=== PATIENT | female | born 1950 | race Caucasian/White ===

== ENCOUNTER 2019-05-13 10:47 | Emergency (ER) | payer OTHER, SELFPAY ==
[2019-05-13 11:02] VITALS: BP 138/78; PULSE 97; RESP 16; TEMP 36.6; O2SAT 97
--- NOTE | 2019-05-13 11:31 | W.ED.GENAD ---
Discharge Plan Disposition Patient Disposition: [facility] [place] Discharge Details Chief Complaint: Suicide-Atempt Clinical Impression: Depression, Suicidal ideation Primary Care Provider: Nani Gonzalez ED Provider: Surendra Mcgill Home Meds and New Rx's Prescriptions: No Action multivitamin tablet 1 tab PO DAILY RF: 0 magnesium oxide 420 mg tablet 420 mg PO DAILY RF: 0 spironolactone 100 mg tablet 50 mg PO BID RF: 0 estradiol 0.1 mg/24 hr patch semiweekly 1 patch TD ONCE RF: 0 hydroxyzine HCl 50 mg tablet 50 mg PO BID PRNRF: 0 fluoxetine 20 mg capsule 20 mg PO DAILY RF: 0 clotrimazole 1 % cream 1 appful VG BID RF: 0 trazodone 50 mg Tablet 12.5 mg PO PRNRF: 0 lamotrigine 25 mg Tablet 25 mg PO DAILY RF: 0 Discharge Instructions Additional Instructions: Please follow-up closely with your primary care doctor for thyroid abnormalities which were noted on today's medical examination Discharge Data Discharge Date/Time-TO BE ENTERED AT DEPARTURE: 05/13/19 19:05 Medical Decision Making <AGUSTINA Ramirez - Last Filed: 05/14/19 16:21> 69-year-old patient who identifies as a woman is presenting for suicidal ideation. Patient did have a specific plan to take trazodone while walking to her [place]. Patient reports she took 1 trazodone only then began to seek help. Patient is a [facility]. Patient reports increasing depression. Patient does report eating and drink without difficulty but is having difficulty sleeping. Mental health consult placed. CPSO in place. Patient has a notable elevation to her TSH. Patient was made aware of this and has no known thyroid abnormalities. I am concerned as this may be contributing to her depression. will add free T4 at this time. Spoke with mental health practitioner reports patient does have an available bed at the [facility] if she chooses to return. Patient was working with her outpatient counselor, Hope, who was trying to get the patient a GL bed at [place] which is patient's preference. Mental health still working on appropriate bed placement. Patient signed out pending bed placement. <AGUSTINA Ray - Last Filed: 05/13/19 21:53> Patient received in signout from Lynne Bee PA-C. See her note for complete HPI and PE details. In brief, patient is a 69-year-old female known to the [facility] who presents to the emergency department with ongoing worsening SI. Patient had specific plan to take trazodone today. She was recently hospitalized at the [facility] for similar symptoms. She has no medical complaints at this time. She is medically cleared with the exception of her elevated TSH and a normal reflective T4. She has no history of hypothyroidism. Case discussed with provider at [facility]. Awaiting nurse to nurse report for transfer. HPI <AGUSTINA Ramirez - Last Filed: 05/14/19 16:21> General Date/Time Provider Initiated Documentation: 05/13/19 10:47. HPI Narrative: 69-year-old patient who identifies as a female presents to the emergency room for suicidal ideation. Patient reports history of multiple admissions for similar. Patient reports she was recently discharged from the hospital on Friday. Patient reports increase in suicidal ideation. Patient reports a specific plan to walk to [place] and take a trazodone intermittently on the way. Patient reports she took only one trazodone then stopped and seek help. Patient denies any significant intent at this time. Patient denies any medical concerns or complaints at this time. having difficulty sleeping at night. Patient does report eating and drinking without difficulty. No significant bowel changes or urinary changes. Denies abdominal pain. Denies difficulty breathing shortness of breath or wheezing. Has no specific medical complaints this time. Denies drug use. Denies alcohol. Patient does report she is compliant with daily medications. Does report a 6-month period of noncompliance prior to recent hospitalization Related Data Home Medications Medication Instructions Recorded Confirmed clotrimazole 1 % vaginal cream 1 appful VG BID gm 05/21/18 05/13/19 estradiol 0.1 mg/24 hr semiweekly 1 patch TD ONCE 05/21/18 05/13/19 transdermal patch fluoxetine 20 mg capsule 20 mg PO DAILY cap 05/21/18 05/13/19 hydroxyzine HCl 50 mg tablet 50 mg PO BID PRN tab 05/21/18 05/13/19 magnesium oxide 420 mg tablet 420 mg PO DAILY tab 05/21/18 05/13/19 multivitamin 1 tab PO DAILY 05/21/18 05/13/19 spironolactone 100 mg tablet 50 mg PO BID 05/21/18 05/13/19 lamotrigine 25 mg PO DAILY 05/13/19 05/13/19 trazodone 12.5 mg PO PRN 05/13/19 Allergies Allergy/AdvReac Type Severity Reaction Status Date / Time chlorpromazine Allergy Unknown Verified 05/13/19 11:09 General Stated Complaint: Suicide-Atempt GOMEZ: 2 Review of Systems <AGUSTINA Ramirez - Last Filed: 05/14/19 16:21> All systems reviewed & are unremarkable except as noted in HPI and below Constitutional Constitutional: Denies chills, Denies fatigue, Denies fever(s) and Denies headache(s) ENT Ears, Nose, Mouth, and Throat: Denies otalgia, Denies headache(s) and Denies sinus pain Respiratory Respiratory: Denies cough and Denies wheezing Gastrointestinal Gastrointestinal: Denies diarrhea, Denies nausea and Denies vomiting Neurologic Neurologic: Denies headache(s) Psychiatric Psychiatric: Reports anxiety, Reports depression, Denies visual hallucinations, Denies hallucinations, Denies homicidal ideation and Reports suicidal ideation Endocrine Endocrine: Denies fatigue Allergic/Immunologic Allergic/Immunologic: Denies wheezing PFSH <AGUSTINA Ramirez - Last Filed: 05/14/19 16:21> Medical History Bipolar disorder, unspecified (Acute) Borderline personality disorder (Acute) Cervicalgia (Acute) Cervicalgia (Acute) Essential hypertension (Acute) H/O acute pancreatitis (Acute) Insomnia (Acute) [id number]-mo-[id number] transgender person (Acute) Nonrheumatic mitral valve disorder (Acute) Osteoarthritis (Chronic) PTSD (post-traumatic stress disorder) (Acute) Right shoulder pain (Resolved) Suicidal ideations (Acute) Tourettes disorder (Acute) resolved Social History Smoking/Tobacco Use Status: Never Alcohol Intake: never Substance use type: does not use Household members: none Number of Children: 2 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 Exam <AGUSTINA Ramirez - Last Filed: 05/14/19 16:21> Narrative Exam Narrative: CONST: Healthy appearing patient, in no acute distress. Well hydrated. Alert and alert. NECK: Normal visual inspection. FROM. Trachea midline. No Midline tenderness. CHEST: Normal insepection of the chest. RESP: Normal respiratory effort. Speaking full sentences. No cough. No audible wheezing. No retractions. CARDIO: No JVD. GI: Soft, nontender. No peritoneal signs, rebound or guarding MUSCULOSKELETAL: Normal Gait. FROM of all extremities. SKIN: Normal. Dry. No rashes. NEURO: Alert and awake. Speech clear. PSYCH: Normal affect. Cooperative. Course <AGUSTINA Ramirez - Last Filed: 05/14/19 16:21> Vital Signs Vital signs: Vital Signs Temperature 36.6 C 05/13/19 11:02 Pulse 97 H 05/13/19 11:02 Respiratory Rate 16 05/13/19 11:02 Blood Pressure 138/78 05/13/19 11:02 Pulse Oximetry 97 05/13/19 11:02 Temperature 36.6 C 05/13/19 11:02 Temperature Source Skin 05/13/19 11:02 Pulse 97 H 05/13/19 11:02 Respiratory Rate 16 05/13/19 11:02 Respiratory Effort Non-Labored 05/13/19 11:07 Blood Pressure 138/78 05/13/19 11:02 Blood Pressure Position Sitting 05/13/19 11:02 Pulse Oximetry 97 05/13/19 11:02 Oxygen Delivery Method Room Air 05/13/19 11:02 Oxygen Flow Rate 0 05/13/19 11:02 Pain Level 3 05/13/19 11:02 Comment 05/13/19 11:02 Sign Out <AGUSTINA Ramirez - Last Filed: 05/14/19 16:21> Sign Out Data: Sign Out Comment: Pending ultimate disposition [facility] updated by Ermelinda Casiano PA at 05/13/19 16:23
[2019-05-13 11:47] LABS: Abs Immature Grans 0.02 k/cumm (0.0-0.09); Absolute Basophil Count 0.03 k/cumm (0.0-0.2); Absolute Eosinophil Count 0.39 k/cumm (0.0-0.7); Absolute Lymphocyte Count 2.08 k/cumm (1.2-3.4); Absolute Monocyte Count 0.77 k/cumm (0.11-0.7); Absolute Neutrophil Count 5.43 k/cumm (1.2-6.7); Basophils % 0.3; Eosinophils % 4.5; HCT 38.3 % (36.0-46.0); HGB 12.7 g/dL (12.0-15.5); Immature Grans % 0.2; Lymphocytes % 23.9; Mean Corp. HGB Concentration 33.2 g/dL (32.0-36.0); Mean Corpuscular Hemoglobin 29.5 pg (27.0-33.0); Mean Corpuscular Volume 88.9 fL (80-95); Monocytes % 8.8; Neutrophils % 62.3; Platelet Count 279 x1000/uL (130-400); RBC 4.31 m/cumm (4.00-5.20); RBC Distribution Width 11.9 % (11.7-14.6); White Blood Cell Count 8.72 k/cumm (4.4-10.8)
[2019-05-13 11:53] LABS: Bilirubin Negative (Negative); Blood Negative (Negative); Clarity Sl Cloudy (Clear); Glucose Negative (Negative); Ketones Negative (Negative); Leukocyte Esterase Negative (Negative); Nitrite Negative (Negative); Urobilinogen 0.2 EU/dL (Up TO 0.2)
--- NOTE | 2019-05-13 11:54 | NUR.NOTE ---
Nursing Note: Pt requested food at this time, Menu was provided.
--- NOTE | 2019-05-13 12:00 | NUR.NOTE ---
Nursing Note: Food ordered.
[2019-05-13 12:07] LABS: ALT 62 U/L (14-59); AST 36 U/L (15-37); Albumin 3.5 g/dL (3.4-5.0); Alkaline Phosphatase 108 U/L (46-116); Anion Gap 7.6 mmol/L (3-11); BUN 20 mg/dL (7-18); Bilirubin, Total 0.4 mg/dL (0.2-1.0); CO2 28.4 mmol/L (21.0-32.0); CREATININE 1.28 mg/dL (0.55-1.02); Chloride 103 mmol/L (98-107); Estimated GFR 41.47 (mL/min/1.73m2); Glucose 153 mg/dL (70-100); Potassium 4.1 mmol/L (3.5-5.1); Sodium 139 mmol/L (136-145); TSH 6.37 uIU/mL (0.36-3.74); Total Protein 7.3 g/dL (6.4-8.2)
--- NOTE | 2019-05-13 12:20 | NUR.NOTE ---
Nursing Note: admitting personal in room to get signature
--- NOTE | 2019-05-13 12:45 | NUR.NOTE ---
Nursing Note: with Mental health worker
--- NOTE | 2019-05-13 13:12 | PDOC.MHCN ---
Mental Health Crisis Note Presenting Issue How did you arrive at the ED and why did you come: Leslie came into ER because of SI with a plan to OD on sleep medication. Precipitating Factors Leslie has multiple home stressors. Leslie has a 13 yr old granddaughter which has been violent at times breaking personal items and putting her foot through a wall. Leslie has been having SI issues for a while. He was recently dc'ed from [place] last month. Leslie feels it was too early. Disposition BEHAVIOR: Leslie is cooperative EYE CONTACT: Good MOOD: Pleasant AFFECT: Sad depressed APPETITE: Fair SLEEP(trouble falling/staying asleep: Poor because of her granddaughter and daughter who are, according to clt, hypersenitive. Plan Leslie will be awaiting bed at the [facility] or other psych unit.
[2019-05-13] MEDS: Docusate Sodium 100 MG CAP (14:56)
[2019-05-13 16:38] LABS: FREE T4 0.78 ng/dL (0.76-1.46)
[2019-05-13 18:36] VITALS: BP 138/78; PULSE 97; RESP 16; TEMP 36.6; O2SAT 97
[2019-05-13 19:04] VITALS: BP 138/78; PULSE 97; RESP 16; TEMP 36.6; O2SAT 97
== END 2019-05-13 19:05 | disposition short-term general hospital (02) ==
PROVIDERS: Physician Assistant; Emergency Provider Physician Assistant; PCP Nurse Practitioner Primary Care
DX: F32.9 Major depressive disorder, single episode, unspecified (principal); R45.851 Suicidal ideations; I10 Essential (primary) hypertension
CPT/HCPCS: 36415; 80053; 99285; 81003; 84439; 84443; 85025; 99284

== ENCOUNTER 2021-01-10 01:53 | Outpatient (CLI) | payer OTHER, SELFPAY ==
--- NOTE | 2021-01-10 | DI.RAD_ITS ---
Exam(s) XR LUMBAR SPINE AP, LAT EXAM: XR LUMBAR SPINE AP, LAT CLINICAL HISTORY: SPINAL STENOSIS LUMBAR REGION WITH CLAUDICATION,M48.062,L4-5,[id number]. TECHNIQUE: 2D digital imaging was performed. COMPARISON: No exams were available for comparison FINDINGS: There is normal alignment of the lumbar spine. Small osteophytes are seen at the L4-5 disc level. N o acute fracture or subluxation. No significant subluxation is seen with flexion or extension. The bones are normally mineralized. There are degenerative changes of the facets from L3-4 through L5-S1 . IMPRESSION: Degenerative changes in the lumbar spine. DATA REPOSITORY: RADIATION DOSE DELIVERED:
== END 2021-01-10 02:13 ==
PROVIDERS: PCP Nurse Practitioner Primary Care; Visit Provider Neurological Surgery
DX: M47.816 Spondylosis without myelopathy or radiculopathy, lumbar region (principal); M48.062 Spinal stenosis, lumbar region with neurogenic claudication
CPT/HCPCS: 72100

== ENCOUNTER 2021-05-08 01:41 | Outpatient (CLI) | payer OTHER, SELFPAY ==
--- NOTE | 2021-05-08 11:00 | DI.MAMMO_ITS ---
Exam(s) MAMMO SCREENING EXAM: MAMMO SCREENING CLINICAL HISTORY: SCREENING, [id number] TECHNIQUE: Mammograms were interpreted according to the usual protocol including computer analysis w [facility] CAD system, tomosynthesis and C-view imaging. COMPARISON: FINDINGS: The breasts are heterogeneously dense. No dominant mass or clumped microcalcification is identified in either breast. The current examination is compared with previous examinations including November 2017 and there has been no gross interval change in appearance in comparison with the prior studies. IMPRESSION: No specific evidence of malignancy at this time. Routine screening examinations are suggested at yea rly intervals in this age group according to the ACS ACR guidelines. BI-RADS Category 1 - Negative Breast Density - Category C - Heterogeneously dense
== END 2021-05-08 02:01 ==
PROVIDERS: PCP Nurse Practitioner Primary Care; Visit Provider Nurse Practitioner Primary Care
DX: Z12.31 Encounter for screening mammogram for malignant neoplasm of breast (principal); R92.8 Other abnormal and inconclusive findings on diagnostic imaging of breast
CPT/HCPCS: 77063; 77067

== ENCOUNTER 2022-12-30 02:38 | Outpatient (CLI) | payer OTHER, SELFPAY ==
--- NOTE | 2022-12-30 | DI.MAMMO_ITS ---
Exam(s) MAMMO SCREENING EXAM: MAMMO SCREENING CLINICAL HISTORY: [id number], SCREENING, Z12.39 TECHNIQUE: Bilateral full field digital CC and MLO mammographic images were obtained with 3D tomosyn thesis and utilizing computer aided detection (CAD). COMPARISON: Available for comparison. FINDINGS: Masses/Architectural Distortion: None seen. Microcalcifications: No suspicious pleomorphic-type are seen. Skin Thickening/Nipple Retraction: None. IMPRESSION: 1. No significant interval change with no specific features of malignancy noted. 2. Unless there is more urgent need, screening mammography is recommended, as per [employer] guidelines. BI-RADS Category 1 - Negative Breast Density - Category C - Heterogeneously dense Breast density category C or D implies that the patient has dense breast tissue. Dense breast tissue is very common and is not abnormal but dense breast tissue can make it harder to find cancer on a ma mmogram. Also, dense breast tissue may increase their breast cancer risk. This information about the result of the mammogram report was provided to the patient to raise their awareness. Use this report when you speak with the patient about their risks for breast cancer, which includes their family hist ory. At that time, you may recommend for more screening tests (Ultrasound or MRI) as they might be us eful based on their risk. A negative radiographic report should not delay biopsy if a dominant or clinically suspicious mass is present. Up to ten percent of cancers are not identified on mammography. A negative report may reinforce clinical impression. Adenosis and dense breasts may obscure an underlying neoplasm. False positive reports average 6 to 10%. Patient will receive a letter notifying them of these results.
== END 2022-12-30 02:58 ==
PROVIDERS: PCP Nurse Practitioner Primary Care; Visit Provider Nurse Practitioner Primary Care
DX: Z12.31 Encounter for screening mammogram for malignant neoplasm of breast (principal)
CPT/HCPCS: 77063; 77067

== ENCOUNTER → 2023-11-19 17:35 | Outpatient (CLI) | payer MEDICARE, SELFPAY ==
--- NOTE | 2023-11-19 16:00 | DI.RAD_ITS ---
Exam(s) XR KNEE RT 3V AP,LAT,ANTONI EXAM: XR KNEE RT 3V AP,LAT,ANTONI CLINICAL HISTORY: Rt knee pain, M25.561, evaluate pathology. TECHNIQUE: 2D digital imaging was performed. COMPARISON: No exams were available for comparison FINDINGS: 3 views No evidence of fracture. Small amount of increased joint fluid noted. No joint space narrowing. No osteophytes. No chondrocalcinosis. No osteophytes. No osseous lesions. IMPRESSION: No acute osseous findings in the right knee. DATA REPOSITORY: RADIATION DOSE DELIVERED:
--- NOTE | 2023-11-19 17:15 | DI.VRAD_ITS ---
PROCEDURE INFORMATION: Exam: XR Right Knee Exam date and time: 11/19/2023 4:29 PM Age: 73 years old Clinical indication: Other: RT knee pain, evaluate pathology TECHNIQUE: Imaging protocol: Radiologic exam of the right knee. Views: 3 views. COMPARISON: No relevant prior studies available. FINDINGS: Bones/joints: Very small knee joint effusion. No fluid level. No calcified knee joint body. Normal bones. Soft tissues: Mild prepatellar edema. IMPRESSION: Mild anterior knee soft tissue swelling and very small knee joint effusion, otherwise, normal. Dictated and Authenticated by: Dash Antoine MD. Ordering:SONA Landers MD
== END ==
PROVIDERS: PCP Nurse Practitioner Primary Care; Visit Provider Nurse Practitioner Family
DX: M25.561 Pain in right knee (principal)
CPT/HCPCS: 73562

== ENCOUNTER → 2024-01-01 00:12 | Outpatient (CLI) | payer MEDICARE, SELFPAY ==
--- NOTE | 2024-01-01 12:35 | DI.MAMMO_ITS ---
Exam(s) MAMMO SCREENING EXAM: MAMMO SCREENING CLINICAL HISTORY: SCREENING, Z12.31 [id number] TECHNIQUE: Bilateral full field digital CC and MLO mammographic images were obtained with 3D tomosyn thesis and utilizing computer aided detection (CAD). COMPARISON: Available for comparison. FINDINGS: Masses/Architectural Distortion: None seen. Microcalcifications: No suspicious pleomorphic-type are seen. Skin Thickening/Nipple Retraction: None. IMPRESSION: 1. No significant interval change with no specific features of malignancy noted. 2. Unless there is more urgent need, screening mammography is recommended, as per [employer] guidelines. BI-RADS Category 1 - Negative Breast Density - Category C - Heterogeneously dense Breast density category C or D implies that the patient has dense breast tissue. Dense breast tissue is very common and is not abnormal but dense breast tissue can make it harder to find cancer on a ma mmogram. Also, dense breast tissue may increase their breast cancer risk. This information about the result of the mammogram report was provided to the patient to raise their awareness. Use this report when you speak with the patient about their risks for breast cancer, which includes their family hist ory. At that time, you may recommend for more screening tests (Ultrasound or MRI) as they might be us eful based on their risk. A negative radiographic report should not delay biopsy if a dominant or clinically suspicious mass is present. Up to ten percent of cancers are not identified on mammography. A negative report may reinforce clinical impression. Adenosis and dense breasts may obscure an underlying neoplasm. False positive reports average 6 to 10%. Patient will receive a letter notifying them of these results.
== END ==
PROVIDERS: PCP Nurse Practitioner Primary Care; Visit Provider Nurse Practitioner Family
DX: Z12.31 Encounter for screening mammogram for malignant neoplasm of breast (principal)
CPT/HCPCS: 77063; 77067

== ENCOUNTER 2025-01-04 13:12 | Emergency (ER) | payer OTHER, SELFPAY ==
[2025-01-04 13:15] VITALS: BP 137/90; PULSE 78; RESP 18; TEMP 36.5; O2SAT 98
--- NOTE | 2025-01-04 14:03 | W.ED.GENAD ---
Discharge Plan Discharge Details Chief Complaint: EyeProblem Primary Care Provider: Nani Gonzalez ED Provider: Patricia Harkins Home Meds and New Rx's Prescriptions: No Action multivitamin tablet 1 tab PO DAILY magnesium oxide 420 mg tablet 420 mg PO DAILY spironolactone 100 mg tablet 50 mg PO BID estradiol 0.1 mg/24 hr patch semiweekly 1 patch TD ONCE hydroxyzine HCl 50 mg tablet 50 mg PO BID PRN fluoxetine 20 mg capsule 20 mg PO DAILY clotrimazole 1 % cream 1 appful VG BID levothyroxine 112 mcg capsule 112 mcg PO DAILY trazodone 50 mg Tablet 12.5 mg PO PRN lamotrigine 25 mg Tablet 25 mg PO DAILY HPI General Date/Time Provider Initiated Documentation: 01/04/25 13:31. Limitations to Documentation: no limitations. Information obtained by: patient and RN notes reviewed. History of Present Illness 74 year old F presents to the emergency department with the chief complaint of acute on chronic visual changes, more in the right eye, described as moderate, Quality is described as other (denies any pain), and is localized to the eyes. Patient reports no radiation. Patient started experiencing this month(s) (had brief episode of worsening visual issues yesterday which has since resolved) and it has been constant (chrtonic changes are worsening, the acute brief episode is resolved). No relieving factors improve symptom(s), No exacerbating factors reported . Patient notes denies confusion, chest pain, fever/chills, headaches, loss of appetite, malaise, nausea/vomiting, shortness of breath, syncope and weakness. Patient did receive the following treatments prior to arrival, none Related Data Home Medications ?Medication ?Instructions ?Recorded ?Confirmed clotrimazole 1 % vaginal cream 1 appful vaginal BID 05/21/18 01/04/25 estradiol 0.1 mg/24 hr semiweekly 1 patch transdermal ONCE 05/21/18 01/04/25 transdermal patch fluoxetine 20 mg capsule 20 mg PO DAILY 05/21/18 01/04/25 Held on 01/04/25. Instructions: Pt Stopped/Never Started hydroxyzine HCl 50 mg tablet 50 mg PO BID PRN 05/21/18 01/04/25 magnesium oxide 420 mg tablet 420 mg PO DAILY 05/21/18 01/04/25 Held on 01/04/25. Instructions: Pt Stopped/Never Started multivitamin 1 tab PO DAILY 05/21/18 01/04/25 Held on 01/04/25. Instructions: Pt Stopped/Never Started spironolactone 100 mg tablet 50 mg PO BID 05/21/18 01/04/25 lamotrigine 25 mg tablet 25 mg PO DAILY 05/13/19 01/04/25 Held on 01/04/25. Instructions: Pt Stopped/Never Started trazodone 50 mg tablet 12.5 mg PO PRN 05/13/19 11/19/23 Held on 01/04/25. Instructions: Pt Stopped/Never Started levothyroxine 112 mcg capsule 112 mcg PO DAILY 11/19/23 01/04/25 Allergies Allergy/AdvReac Type Severity Reaction Status Date / Time chlorpromazine Allergy Unknown Skin Rash Verified 01/04/25 13:20 General Stated Complaint: EyeProblem GOMEZ: 3 Review of Systems Constitutional Constitutional: Reports as per HPI, Denies chills, Denies fever(s) and Denies headache(s) Eyes Eyes: Reports as per HPI ENT Ears, Nose, Mouth, and Throat: Denies headache(s) Cardiovascular Cardiovascular: Reports as per HPI, Denies chest pain and Denies lightheadedness Respiratory Respiratory: Denies cough Integumentary/Breasts Skin/Breast: Reports as per HPI, Denies rash and Denies skin pain Neurologic Neurologic: Denies headache(s) Exam Const General: cooperative, healthy appearing, comfortable, no acute distress, well developed and well groomed Nutritional Appearance: average body habitus and well nourished Orientation: alert, awake and oriented x3 [facility] Head: normal to inspection, normocephalic and atraumatic Ears: hearing grossly normal bilaterally and external ears normal General nose exam: external nose normal and nares normal Face and sinus: normal facial exam and face symmetric Mouth: oral mucosae normal, lip normal and moist mucous membranes Eyes General: appearance normal, both eyes and all related structures Visual Montero: abnormal by confrontation (otherwise normal visual montero) peripheral vision loss on the right Alignment and Position: alignment normal and position normal Periorbital: periorbital findings normal Eyelids: eyelids normal Conjunctivae: conjunctivae normal Sclera: sclerae normal Pupils: PERRL, normal by confrontation and accommodation normal EOM: EOM intact bilaterally Resp Effort & Inspection: normal respiratory effort, able to speak in complete sentences and no respiratory distress Skin General skin exam: no rashes or lesions noted Neuro General: patient alert, patient awake and patient oriented x3 Cranial Nerves: CN's II-XI intact bilaterally Cognition: normal cognition Speech: speech normal Gait: normal gait Motor: muscle tone normal throughout, strength 5/5 throughout and no fasciculations Psych Appearance: grossly normal and well kempt Mental Status: mental status grossly normal Speech and Movement: speech and movement normal Course Vital Signs Vital signs: Vital Signs Temperature 36.5 C 01/04/25 13:15 Pulse 78 01/04/25 13:15 Respiratory Rate 18 01/04/25 13:15 Blood Pressure 137/90 01/04/25 13:15 Pulse Oximetry 98 01/04/25 13:15 Temperature 36.5 C 01/04/25 13:15 Pulse 78 01/04/25 13:15 Respiratory Rate 18 01/04/25 13:15 Blood Pressure 137/90 01/04/25 13:15 Pulse Oximetry 98 01/04/25 13:15 Oxygen Delivery Method Room Air 01/04/25 13:15 Oxygen Flow Rate 0 01/04/25 13:15 Pain Level 0 01/04/25 13:15 Medical Decision Making Patient is a pleasant 74 year old female, with PMH signficant for PTSD, mitral valve disorder, HTN, borderline personality, bipolar, 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 She reports that she has had worsening vision for several months, particularly in eulogio right. Describes the vision as grid in both eyes but he right is more cloudy than the left. Can wax/wane. Has had bilateral lens replacements but did have post operative complication of scar tissue formation on the right that was treated with lazer. No eye pain, no RAMIREZ. Denies other neurologic deficits. Yesterday, had a 5-10 minute episode of the right eye visual field jumping up and to the left but only a portion of the montero. No previous similar episodes, none since. Reports that for 3 of those minutes, had increased blurriness. Again, no eye pain or RAMIREZ during that episode. Presents today for evaluation after such episode. On exam, patient appears non-toxic. Eyes normal appearance. Right monocular temporal hemianopia. Left visual montero intact. Visual acuity 20/25 OD, 20/40 OS. She does use reading glasses. Neuro exam otherwise intact. Bedside ocular US completed by myself and Dr. Woo, no acute abnormality appreciated. Patient has had no headache to suggest acute angle-closure glaucoma. No eye trauma to suspect hyphema or corneal abrasion. No exposure for keratitis or corneal ulcer's, while patient did have a brief episode of photophobia associated with the jumping vision, no continued photophobia. Did consider a lens dislocation as the patient has had lens replacement in the past but again, no trauma to precipitate this. However, this could explain some of the visual changes that she is having. No evidence to suggest infectious etiology. Symptoms are not consistent with uveitis, vitreous hemorrhage. Considered vascular sources such as retinal artery or venous occlusion but his symptoms improved, this would have been a brief episode. Again, no No loss of vision, ultrasound does not show retinal detachment and not having any monocular vision loss. Spoke with Elin regarding presentation and history. Patient last seen in 2020. [place] appointment tomorrow at 11:20AM in [facility] When last seen, concern for early glaucoma. Out of abundance of caution, will obtain CTA head/neck for evaluation of CVA. However, with the chronicity of these sypmtoms, and how they fluctate, less liekly to be CVA. More concerned with lens issue given hx of scar tissue formation. Labs reviewed, no signficant abnormality. At the end fo my shift, care transitioned to oncoming provider with imgaing pending. I did reevaluate the patient and her visual montero are intact. She is now reporting that for several months, she has had intermittent loss of montero, is quesioning scar tissue again on lens. PFSH All Active Problems Cervicalgia (Acute) Occipital pain (Acute) Medical History H/O acute pancreatitis Osteoarthritis Insomnia [id number] transgender person Tourettes disorder resolved Suicidal ideations PTSD (post-traumatic stress disorder) Right shoulder pain Nonrheumatic mitral valve disorder Essential hypertension Cervicalgia Borderline personality disorder Bipolar disorder, unspecified Surgical History Hx of cholecystectomy History of knee surgery Hernia Family History Mother Alzheimer disease Emphysema of lung Father Heart disease Brother Bipolar 1 disorder Social History Smoking/Tobacco Use Status: Never Smoking risk assessment performed?: Yes Alcohol Intake: never Substance use type: does not use Household members: none Number of Children: 2 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
--- NOTE | 2025-01-04 14:05 | ED.PROG_ITS ---
Date of service: 01/04/25 Time of Service: 14:05 Medical Decision Making This patient had transient visual symptoms. A [id number] ocular ultrasound was performed. Patient had no signs of optic nerve abnormalities. She had no obvious retinal detachment. No obvious vitreous hemorrhage. She had a reassuring CT angiogram in the emergency department. [facility] care was consulted and patient was going to be seen tomorrow. Discharge Plan Disposition Patient Disposition: Home Condition: Stable Discharge Details Clinical Impression: Vision changes Primary Care Provider: Nani Gonzalez ED Provider: Harry Ordaz Home Meds and New Rx's Prescriptions: Continued multivitamin tablet 1 tab PO DAILY magnesium oxide 420 mg tablet 420 mg PO DAILY spironolactone 100 mg tablet 50 mg PO BID estradiol 0.1 mg/24 hr patch semiweekly 1 patch TD ONCE hydroxyzine HCl 50 mg tablet 50 mg PO BID PRN fluoxetine 20 mg capsule 20 mg PO DAILY clotrimazole 1 % cream 1 appful VG BID levothyroxine 112 mcg capsule 112 mcg PO DAILY trazodone 50 mg Tablet 12.5 mg PO PRN lamotrigine 25 mg Tablet 25 mg PO DAILY Discharge Instructions Additional Instructions: You were seen in the emergency department for your transient visual changes of right eye, 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 Your CTA of your brain and neck shows no acute stroke, your vision change had resolved. We have arranged for you to see [facility] tomorrow at 11 AM, please follow through with this, please talk to your [facility] about referral to neurology as you did not want to wait this evening for neurology consult or ophthalmology consult. Referrals: Nani Gonzalez [Primary Care Provider, Medicine] Discharge Data Discharge Date/Time-TO BE ENTERED AT DEPARTURE: 01/04/25 18:53 POCUS Exam (ED) Limited Ocular Exam DATE OF EXAM: 01/04/25 TIME OF EXAM: 14:00 PROVIDER THAT PERFORMED THE STUDY: Estevan Woo IS THIS A REPEAT EXAM DURING THIS ENCOUNTER: No OCULAR EXAM: Right eye INDICATION FOR RIGHT EYE EXAM: Decreased vision VISUALIZED STRUCTURES: Right optic nerve. PERTINENT FINDINGS/IMPRESSION OF THE RIGHT EYE: No apparent abnomalities: Exam complete
--- NOTE | 2025-01-04 14:30 | RT.EKG_ITS ---
APPROVED REPORT Exam: Resting ECG Reason for Exam: visual changes Patient Location: E HR:64 bpm ECG Measurements Heart Rate 64 AXIS UT 215 P 77 QRSd 85 QRS 10 QT 408 T 47 QTc 420 Conclusion Sinus rhythm...normal P axis, V-rate 60- 99 Borderline prolonged UT interval...UT >212, V-rate 50- 90 No Occlusion ID
--- NOTE | 2025-01-04 14:30 | DI.CT_ITS ---
Exam(s) CT BRAIN NECK CTA EXAM: CT BRAIN NECK CTA CLINICAL HISTORY: right eye visual changes. TECHNIQUE: Imaging Protocol: Axial CT angiography was performed with multi- slice acquisition and multi-planar and MIP reconstructions. CONTRAST MATERIAL: Intravenous: Omnipaque 350 Contrast volume:100 ml COMPARISON: No exams were available for comparison FINDINGS: CT Head W/O and W contrast: Ventricles and Extra axial spaces: Normal in size and morphology for the patient's age. Hemorrhage: None. Cerebral parenchyma: No evidence of acute infarct or mass. Midline shift: None. Brainstem/Cerebellum: No acute findings.. Calvarium: Normal. Visualized Paranasal sinuses/Mastoids: Clear. Soft Tissues: Unremarkable. Enhancement: Normal. Venous sinuses are patent. CTA Brain W: Internal Carotid Arteries: Right: No aneurysm, occlusion or significant stenosis. Left: No aneurysm, occlusion or significant stenosis. Middle Cerebral Arteries: Right: No aneurysm, occlusion or significant stenosis. Left: No aneurysm, occlusion or significant stenosis. Anterior Cerebral Arteries: Right: No aneurysm, occlusion or significant stenosis. Left: No aneurysm, occlusion or significant stenosis. Posterior cerebral Arteries: Right: No aneurysm, occlusion or significant stenosis. Left: No aneurysm, occlusion or significant stenosis. Vertebral Arteries: Right: No aneurysm, occlusion or significant stenosis. Left: No aneurysm, occlusion or significant stenosis. Basilar Artery: No aneurysm, occlusion or significant stenosis. CTA Neck W: Common Carotid: Minimal plaque at the common carotid bulbs. Right: No dissection, occlusion or significant stenosis. Left: No dissection, occlusion or significant stenosis. External Carotid: Right: No dissection, occlusion or significant stenosis. Left: No dissection, occlusion or significant stenosis. Internal Carotid: Right: No dissection, occlusion or significant stenosis. Left: No dissection, occlusion or significant stenosis. Vertebral Artery: Right: No dissection, occlusion or significant stenosis. Left: No dissection, occlusion or significant stenosis. Lung Apices: No acute findings. Bones: No acute abnormality. Degenerative changes in the cervical spine, greatest at C1-2 and C6-7. Reversal of the normal cervical lordosis at C6-7. Soft Tissues: Normal. IMPRESSION: 1. CTA brain: Normal CTA examination of the [place] of [place]. 2. Head CT: No acute abnormality. 3. CTA neck: No evidence of occlusion, significant stenosis or dissection. The preliminary [facility] report was reviewed. RADIATION DOSE DELIVERED: 2,103.24mGy.cm Total DLP DATA REPOSITORY: All CT scans at this facility are submitted to the National Radiology Data Registry (NRDR) Dose Index Registry (DIR) with the [employer] (ACR). RADIATION OPTIMIZATION: All CT scans at this facility use at least one of these dose optimization techniques: automated exposure control; mA and/or kV adjustment per patient size (includes targeted exams where dose is matched to clinical indication); or iterative reconstruction.
[2025-01-04 15:30] LABS: Abs Immature Grans 0.03 10^3/uL (0.0-0.06); HCT 40.4 % (36.0-46.0); HGB 13.3 g/dL (11.2-15.7); Immature Grans % 0.3 %; MCH 29.7 pg (27.0-33.0); MCHC 32.9 % (32.0-36.0); MCV 90 fL (80-95); MPV 9.5 fL (8.0-11.0); Platelet Count 271 10^3/uL (130-400); RBC 4.48 10^6/uL (3.93-5.22); RDW 11.8 % (11.7-14.6); RDW-SD 38.8 fL; WBC 9.05 10^3/uL (4.4-10.8)
[2025-01-04 15:49] LABS: ALT 21 U/L (14-59); AST 13 U/L (15-37); Albumin 3.7 g/dL (3.4-5.0); Alkaline Phosphatase 136 U/L (46-116); Anion Gap 5.9 mmol/L (3-11); BUN 17 mg/dL (7-18); Bilirubin, Total 0.2 mg/dL (0.2-1.0); CO2 32.1 mmol/L (21.0-32.0); Calcium 9.7 mg/dL (8.5-10.1); Chloride 104 mmol/L (98-107); Estimated GFR 53.06 (mL/min/1.73m2); Glucose 93 mg/dL (74-106); Magnesium 2.1 mg/dL (1.8-2.4); Potassium 4.0 mmol/L (3.5-5.1); Sodium 142 mmol/L (136-145); Total Protein 7.7 g/dL (6.4-8.2)
[2025-01-04] MEDS: Normal Saline - Diluent 50 ML VIAL IJ (17:15)
[2025-01-04] MEDS: Omnipaque 350 MG/ML 100 ML BTL IJ (17:17)
--- NOTE | 2025-01-04 18:34 | DI.[facility]_ITS ---
PROCEDURE INFORMATION: Exam: CTA Head Without And With Contrast, Arteriography Exam date and time: 01/04/2025 5:11 PM Age: 74 years old Clinical indication: Visual disturbance and other: Right eye visual changes; TECHNIQUE: Imaging protocol: Computed tomographic angiography of the head without and with contrast. Exam focused on the arteries. 3D rendering (Not supervised by radiologist): MIP and/or 3D reconstructed images were created by the technologist. Contrast material: OMNI 350; Contrast volume: 70 ml; Contrast route: INTRAVENOUS (IV); COMPARISON: No relevant prior studies available. FINDINGS: ANTERIOR CIRCULATION: Right internal carotid artery: Intracranial segment is patent with no significant stenosis or occlusion. No aneurysm. Right middle cerebral artery: No occlusion or significant stenosis. No aneurysm. Right anterior cerebral artery: No occlusion or significant stenosis. No aneurysm. Left internal carotid artery: Intracranial segment is patent with no significant stenosis. No aneurysm. Left middle cerebral artery: No occlusion or significant stenosis. No aneurysm. Left anterior cerebral artery: No occlusion or significant stenosis. No aneurysm. POSTERIOR CIRCULATION: Right vertebral artery: No occlusion or significant stenosis. No aneurysm. Left vertebral artery: No occlusion or significant stenosis. No aneurysm. Basilar artery: No occlusion or significant stenosis. No aneurysm. Right posterior cerebral artery: No occlusion or significant stenosis. No aneurysm. Left posterior cerebral artery: No occlusion or significant stenosis. No aneurysm. HEAD: Brain: There is no acute intracranial hemorrhage, mass effect or midline shift. There is no large acute territorial cerebral infarct. Cerebral ventricles: Normal. No ventriculomegaly. Bones: Unremarkable. No acute fracture. Paranasal sinuses: Visualized sinuses are normal. No fluid levels. Mastoid air cells: Visualized mastoids are normal. No mastoid effusion. Soft tissues: Unremarkable. IMPRESSION: 1. No acute intracranial hemorrhage, mass effect or midline shift. 2. No evidence of arterial occlusion or significant stenosis. PROCEDURE INFORMATION: Exam: CTA Neck Without And With Contrast Exam date and time: 01/04/2025 5:11 PM Age: 74 years old Clinical indication: Visual disturbance and other: Right eye visual changes; TECHNIQUE: Imaging protocol: Computed tomographic angiography of the neck without and with contrast. Exam focused on the cervical segments of the vasculature. 3D rendering (Not supervised by radiologist): MIP and/or 3D reconstructed images were created by the technologist. Contrast material: OMNI 350; Contrast volume: 70 ml; Contrast route: INTRAVENOUS (IV); COMPARISON: No relevant prior studies available. FINDINGS: Right common carotid artery: No stenosis. No dissection or occlusion. Right internal carotid artery: No stenosis of the extracranial segment. No dissection or occlusion. Right external carotid artery: No occlusion or stenosis of the origin. Left common carotid artery: No stenosis. No dissection or occlusion. Left internal carotid artery: No stenosis of the extracranial segment. No dissection or occlusion. Left external carotid artery: No occlusion or stenosis of the origin. Right vertebral artery: No stenosis. No dissection or occlusion. Left vertebral artery: No stenosis. No dissection or occlusion. Soft tissues: Normal. No significant soft tissue swelling. Bones/joints: No acute fracture. There is reversal of the cervical lordosis, possibly secondary to degenerative changes and positioning with mild anterolisthesis of C4 on C5. Degenerative changes noted with bilateral neural foraminal narrowing. Lungs: Bronchial wall thickening noted in the partially visualized lung norman. IMPRESSION: 1. No significant carotid stenosis. 2. No arterial occlusion or dissection. 3. Bronchial wall thickening in the partially visualized lung norman. Correlate with clinical findings to exclude chronic or acute bronchial inflammation. REFERENCES: NASCET CRITERIA. The degree of stenosis in the cervical segment of the internal carotid artery is based on NASCET criteria. Normal is no stenosis. Mild is less than 50% stenosis. Moderate is 50-69% stenosis. Severe is 70% to 99% stenosis. Total occlusion is no detectable patent lumen. Dictated and Authenticated by: Rylee Morales MD. Orderin Torin Gomez MD
[2025-01-04 18:41] VITALS: BP 148/62; PULSE 60; RESP 18; TEMP 36.6; O2SAT 100
--- NOTE | 2025-01-04 18:47 | W.EDPROG ---
Date of service: 01/04/25 Time of Service: 18:47 Medical Decision Making This dictation utilizes [id number] dictation software and may contain unedited grammatical errors. 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 Estevan Woo and Patricia Harkins PA-C with POCUS of the eye performed which showed no retinal detachment or other abnormality, she has arranged follow-up tomorrow at 11 AM at [facility] with a pending CTA brain and neck. Patients' medical history: Hypertension. Family and social history: Noncontributory. Pertinent exam findings / vital signs include just before signout Patricia Harkins PA-C and Dr. Estevan Woo both reexamined the patient and her visual field deficit was not present, previously her visual acuity for OD was 20/25 and OS 20/40 Differential / pathologies of concern include vision problem, cataracts, possible stroke- though unlikely with monocular symptoms. Diagnostic studies of: -CTA Brain and neck pending - shows no acute pathology, no bronchitis symptoms for incidental bronchial thickening per vRAD read. Interventions of: -None- plan to have patient follow with [facility] tomorrow, will recommend [facility] referral from [facility]. -I discussed the option to consult with Neurology at [facility], but the patient engaged in shared decision making and acknowledged that she wanted to return home. Recommend she take 325mg aspirin daily ED Course/Assessment/Plan: 74-year-old female presents with somewhat vague vision changes yesterday with a possible monocular blurred vision or loss of temporal visual field that resolved, POCUS of the eye shows no acute findings, CTA brain and neck shows no acute findings, patient has arranged optometry follow-up for tomorrow, recommend she pursue [facility] referral to neurolog[facility] as she was not willing to wait for neurology consult this evening. Strict return criteria for any worsening visual changes especially with motor deficits or weaknesses or speech difficulties or any other emergent concerns. The patient and family engaged in this shared decision making and verbalized understanding that it could take a prolonged time to get consult this evening and they wished to follow-up in the outpatient setting. Findings not consistent with stroke, loss of vision, retinal detachment, infection, optic neuritis. Disposition of Vision Changes. Patient verbalized understanding of the plan and return to ED criteria and engaged in shared decision making. Medical Records Medical records reviewed: Yes I reviewed the patient's medical records. Imaging Data Radiologic Study: Attestation: I personally reviewed and interpreted this imaging study as follows: Imaging: CT Scan Radiologist's impression: Exam: CTA Head Without And With Contrast, Arteriography Exam date and time: 01/04/2025 5:11 PM Age: 74 years old Clinical indication: Visual disturbance and other: Right eye visual changes; TECHNIQUE: Imaging protocol: Computed tomographic angiography of the head without and with contrast. Exam focused on the arteries. 3D rendering (Not supervised by radiologist): MIP and/or 3D reconstructed images were created by the technologist. Contrast material: OMNI 350; Contrast volume: 70 ml; Contrast route: INTRAVENOUS (IV); COMPARISON: No relevant prior studies available. FINDINGS: ANTERIOR CIRCULATION: Right internal carotid artery: Intracranial segment is patent with no significant stenosis or occlusion. No aneurysm. Right middle cerebral artery: No occlusion or significant stenosis. No aneurysm. Right anterior cerebral artery: No occlusion or significant stenosis. No aneurysm. Left internal carotid artery: Intracranial segment is patent with no significant stenosis. No aneurysm. Left middle cerebral artery: No occlusion or significant stenosis. No aneurysm. Left anterior cerebral artery: No occlusion or significant stenosis. No aneurysm. POSTERIOR CIRCULATION: Right vertebral artery: No occlusion or significant stenosis. No aneurysm. Left vertebral artery: No occlusion or significant stenosis. No aneurysm. Basilar artery: No occlusion or significant stenosis. No aneurysm. Right posterior cerebral artery: No occlusion or significant stenosis. No aneurysm. Left posterior cerebral artery: No occlusion or significant stenosis. No aneurysm. HEAD: Brain: There is no acute intracranial hemorrhage, mass effect or midline shift. There is no large acute territorial cerebral infarct. Cerebral ventricles: Normal. No ventriculomegaly. Bones: Unremarkable. No acute fracture. Paranasal sinuses: Visualized sinuses are normal. No fluid levels. Mastoid air cells: Visualized mastoids are normal. No mastoid effusion. Soft tissues: Unremarkable. IMPRESSION: 1. No acute intracranial hemorrhage, mass effect or midline shift. 2. No evidence of arterial occlusion or significant stenosis. PROCEDURE INFORMATION: Exam: CTA Neck Without And With Contrast Exam date and time: 01/04/2025 5:11 PM Age: 74 years old Clinical indication: Visual disturbance and other: Right eye visual changes; TECHNIQUE: Imaging protocol: Computed tomographic angiography of the neck without and with contrast. Exam focused on the cervical segments of the vasculature. 3D rendering (Not supervised by radiologist): MIP and/or 3D reconstructed images were created by the technologist. Contrast material: OMNI 350; Contrast volume: 70 ml; Contrast route: INTRAVENOUS (IV); COMPARISON: No relevant prior studies available. FINDINGS: Right common carotid artery: No stenosis. No dissection or occlusion. Right internal carotid artery: No stenosis of the extracranial segment. No dissection or occlusion. Right external carotid artery: No occlusion or stenosis of the origin. Left common carotid artery: No stenosis. No dissection or occlusion. Left internal carotid artery: No stenosis of the extracranial segment. No dissection or occlusion. Left external carotid artery: No occlusion or stenosis of the origin. Right vertebral artery: No stenosis. No dissection or occlusion. Left vertebral artery: No stenosis. No dissection or occlusion. Soft tissues: Normal. No significant soft tissue swelling. Bones/joints: No acute fracture. There is reversal of the cervical lordosis, possibly secondary to degenerative changes and positioning with mild anterolisthesis of C4 on C5. Degenerative changes noted with bilateral neural foraminal narrowing. Lungs: Bronchial wall thickening noted in the partially visualized lung norman. IMPRESSION: 1. No significant carotid stenosis. 2. No arterial occlusion or dissection. 3. Bronchial wall thickening in the partially visualized lung norman. Correlate with clinical findings to exclude chronic or acute bronchial inflammation. REFERENCES: NASCET CRITERIA. The degree of stenosis in the cervical segment of the internal carotid artery is based on NASCET criteria. Normal is no stenosis. Mild is less than 50% stenosis. Moderate is 50-69% stenosis. Severe is 70% to 99% stenosis. Total occlusion is no detectable patent lumen. Dictated and Authenticated by: Rylee Morales MD. Lab Data Lab results reviewed: Yes I reviewed the patient's lab results. Labs: Laboratory Tests Range/Units 01/04/25 15:20 WBC (4.4-10.8) 10^3/uL 9.05 RBC (3.93-5.22) 10^6/uL 4.48 Hgb (11.2-15.7) g/dL 13.3 Hct (36.0-46.0) % 40.4 MCV (80-95) fL 90 MCH (27.0-33.0) pg 29.7 MCHC (32.0-36.0) % 32.9 RDW (11.7-14.6) % 11.8 Plt Count (130-400) 10^3/uL 271 MPV (8.0-11.0) fL 9.5 Immature Gran % % 0.3 Neutrophils % % 62.1 Lymphocytes % % 22.9 Monocytes % % 8.0 Eosinophils % % 6.3 Basophils % % 0.4 Nucleated RBC % (0.0-0.3) % 0.0 Absolute Neutrophils (1.2-6.7) 10^3/uL 5.62 Absolute Lymphocytes (1.2-3.4) 10^3/uL 2.07 Absolute Monocytes (0.1-0.8) 10^3/uL 0.72 Absolute Eosinophils (0.0-0.7) 10^3/uL 0.57 Absolute Basophils (0.0-0.2) 10^3/uL 0.04 Sodium (136-145) mmol/L 142 Potassium (3.5-5.1) mmol/L 4.0 Chloride (98-107) mmol/L 104 Carbon Dioxide (21.0-32.0) mmol/L 32.1 H Anion Gap (3-11) mmol/L 5.9 BUN (7-18) mg/dL 17 Creatinine (0.55-1.02) mg/dL 1.1 H Est GFR (CKD-EPI 2020) (mL/min/1.73m2) 53.06 Glucose (74-106) mg/dL 93 Calcium (8.5-10.1) mg/dL 9.7 Magnesium (1.8-2.4) mg/dL 2.1 Total Bilirubin (0.2-1.0) mg/dL 0.2 AST (15-37) U/L 13 L ALT (14-59) U/L 21 Alkaline Phosphatase (46-116) U/L 136 H Total Protein (6.4-8.2) g/dL 7.7 Albumin (3.4-5.0) g/dL 3.7 Discharge Plan Disposition Patient Disposition: Home Condition: Stable Discharge Details Clinical Impression: Vision changes Primary Care Provider: Nani Gonzalez ED Provider: Harry Ordaz Home Meds and New Rx's Prescriptions: Continued multivitamin tablet 1 tab PO DAILY magnesium oxide 420 mg tablet 420 mg PO DAILY spironolactone 100 mg tablet 50 mg PO BID estradiol 0.1 mg/24 hr patch semiweekly 1 patch TD ONCE hydroxyzine HCl 50 mg tablet 50 mg PO BID PRN fluoxetine 20 mg capsule 20 mg PO DAILY clotrimazole 1 % cream 1 appful VG BID levothyroxine 112 mcg capsule 112 mcg PO DAILY trazodone 50 mg Tablet 12.5 mg PO PRN lamotrigine 25 mg Tablet 25 mg PO DAILY Discharge Instructions Additional Instructions: You were seen in the emergency department for your transient visual changes of right eye, 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 Your CTA of your brain and neck shows no acute stroke, your vision change had resolved. We have arranged for you to see [facility] eye care tomorrow at 11 AM, please follow through with this, please talk to [facility] about referral to neurology as you did not want to wait this evening for neurology consult or ophthalmology consult. Referrals: Nani Gonzalez [Primary Care Provider, Medicine]
== END 2025-01-04 18:53 | disposition home or self-care (01) ==
PROVIDERS: Physician Assistant; Emergency Provider Physician Assistant; PCP Nurse Practitioner Primary Care
DX: H53.8 Other visual disturbances (principal); Z98.41 Cataract extraction status, right eye; Z98.42 Cataract extraction status, left eye; Z86.69 Personal history of other diseases of the nervous system and sense organs; Z86.79 Personal history of other diseases of the circulatory system
CPT/HCPCS: 99284; 99285; 36415; 36416; 82962; 00123; 70496; 70498; 76512; 80053; 93005; 83735; 85025; 93010; J3490